=== PATIENT | male | born 1985 | race Caucasian/White ===

== ENCOUNTER 2018-04-02 13:02 | Emergency (ER) | payer OTHER ==
[~2018-04-02 13:02] MED LIST: NOHOMEMEDS
== END 2018-04-02 13:07 ==
LOC: EME 13:02
PROC: 5A12012 Performance of Cardiac Output, Single, Manual (ICD-10-PCS; principal; 2018-04-02)
DX: I46.9 Cardiac arrest, cause unspecified (principal)
CPT/HCPCS: 80048 91; 81003; 82150; 83605; 83690; 84484; 85025 91; 85610; 85730; 86850; 86900; 86901; 87040; 99281; 99284; G0480